=== PATIENT | male | born 1985 | race Caucasian/White ===

== ENCOUNTER 2021-02-28 09:43 | Emergency (ER) | payer SELFPAY ==
[~2021-02-28] VITALS: Ht 167 cm; Wt 77.0 kg
[2021-02-28 10:30] VITALS: BP 138/83
--- NOTE | 2021-02-28 10:45 | ED Lower Extremity ---
General Chief Complaint: Lower Extremity Stated Complaint: L FOOT PAIN/SWOLLEN/REDNESS Nursing Triage Note: Pt reports walking here from [place], [place]. C/o pain and blisters to bilat feet. Pt reports sleeping on side of road x3 days. Source: patient Exam Limitations: no limitations (MONO KAT APRN) History of Present Illness Date Seen by Provider: Feb 28, 2021 Time Seen by Provider: 10:00 Initial Comments To ER with reports of bilateral foot pain after walking by foot from [place]. He now has blisters to both feet he is only had 1 sock and has been alternating it from 1 foot to the other. Onset: just prior to arrival Severity: moderate Pain/Injury Location: bilateral foot Method of Injury: unknown Modifying Factors: Worse With Movement (MONO KAT APRN) Allergies and Home Medications Allergies Coded Allergies: No Known Drug Allergies (Unverified , 02/28/21) Patient Home Medication List Home Medication List Reviewed: Yes (MONO KAT APRN) Review of Systems Constitutional: see HPI EENTM: see HPI Respiratory: no symptoms reported Cardiovascular: no symptoms reported Genitourinary: no symptoms reported Musculoskeletal: no symptoms reported Skin: see HPI Psychiatric/Neurological: No Symptoms Reported (MONO KAT APRN) Past Ajbhmid-Fkneqi-Athnon Hx Patient Social History Tobacco Use?: No Smoking Status: Former Smoker Substance use?: No Alcohol Use?: Yes Alcohol Frequency: Couple times a week (MONO KAT APRN) Immunizations Up To Date First/Initial COVID19 Vaccinat: August 2020 COVID19 Vaccine [employer]: [employer] (MONO KAT APRN) Past Medical History Surgery/Hospitalization HX: appy, deviated septum (MONO KAT APRN) Physical Exam Vital Signs Vital Signs - First Documented 02/28/21 10:30 Temp 36.7 Pulse 119 Resp 18 B/P (MAP) 138/83 (101) Pulse Ox 98 O2 Delivery Room Air (SONJA SIMMS MD) Vital Signs Capillary Refill : Less Than 3 Seconds (MONO KAT APRN) Height, Weight, BMI Height: '" Weight: lbs. oz. kg; 27.00 BMI Method: General Appearance: WD/WN, no apparent distress HEENT: PERRL/EOMI, normal ENT inspection Neck: non-tender, full range of motion Respiratory: no respiratory distress, no accessory muscle use Hips: bilateral hip non-tender, bilateral hip normal inspection, bilateral hip normal range of motion Legs: bilateral leg non-tender, bilateral leg normal inspection, bilateral leg normal range of motion Knees: bilateral knee non-tender, bilateral knee normal inspection, bilateral knee normal range of motion Ankles: bilateral ankle non-tender, bilateral ankle normal inspection, bilateral ankle normal range of motion Feet: bilateral foot other (Slight erythema to the dorsal aspect of the little toe bilaterally, no blisters or vesicles. Plantar surface of the right foot has some maceration.) Neurologic/Psychiatric: alert, normal mood/affect, oriented x 3 Skin: normal color, warm/dry (MONO KAT APRN) Progress/Results/Core Measures Results/Orders Vital Signs/I&O 02/28/21 10:30 Temp 36.7 Pulse 119 Resp 18 B/P (MAP) 138/83 (101) Pulse Ox 98 O2 Delivery Room Air (SONJA SIMMS MD) Blood Pressure Mean: 101 Departure Impression Primary Impression: Wound of foot Disposition: 01 HOME, SELF-CARE Condition: Stable Departure-Patient Inst. Decision time for Depature: 10:44 (MONO KAT APRN) Referrals: NO,LOCAL PHYSICIAN (PCP/Family) Primary Care Physician Patient Instructions: Wound Care (DC) ATTENDING PHYSICIAN NOTE: I was physically present as attending physician in the emergency department during the care of this patient, but I was not directly involved in the decision making or delivery of care for this patient. (SONJA SIMMS MD) MONO KAT APRN Feb 28, 2021 10:45 SONJA SIMMS MD Feb 28, 2021 19:11
== END 2021-02-28 10:49 | disposition home or self-care (01) ==
LOC: ER 09:47
DX: S99.822A Other specified injuries of left foot, initial encounter (principal); S99.821A Other specified injuries of right foot, initial encounter; T69.021A Immersion foot, right foot, initial encounter; L53.8 Other specified erythematous conditions; X50.3XXA Overexertion from repetitive movements, initial encounter; Z87.891 Personal history of nicotine dependence
CPT/HCPCS: 99281